=== PATIENT | female | born 1975 | race Caucasian/White ===

== ENCOUNTER 2016-10-17 08:31 | Day surgery (SDC) | payer OTHER ==
[2016-10-13 13:24] VITALS: BMI 49.6
[2016-10-17] MEDS ORDERED: LIDOCAINE HCL/PF 2% SDV 5ML VIAL ONE (09:24)
[2016-10-17] MEDS ORDERED: ONDANSETRON 4 MG/2 ML VIAL ONE (09:24)
[2016-10-17] MEDS ORDERED: KETOROLAC TROMETHAMINE 30 MG/1 ML VIAL ONE (09:24)
[2016-10-17] MEDS ORDERED: DEXAMETHASONE SOD PHOSPHATE 4 MG/1 ML VIAL ONE (09:24)
[2016-10-17] MEDS ORDERED: PROPOFOL 20 ML ONE ×2 (09:24→10:57)
[2016-10-17] MEDS ORDERED: MIDAZOLAM HCL 2 MG/2 ML SINGLE DOSE VIAL ONE (09:24)
[2016-10-17] MEDS ORDERED: ceFAZolin SODIUM 1 GM VIAL ONE (09:24)
[2016-10-17] MEDS ORDERED: BUPIVACAINE HCL/PF 2.5 MG/ML - 30 ML VIAL IJ ONE (09:36)
[2016-10-17] MEDS ORDERED: ROCURONIUM BROMIDE 50 MG/5 ML VIAL ONE (09:55)
[2016-10-17] MEDS ORDERED: ONDANSETRON 4 MG/2 ML VIAL IVPUSH PRN (10:52)
[2016-10-17] MEDS ORDERED: oxyCODONE HCL 5 MG TABLET PO PRN ×2 (10:52)
[2016-10-17] MEDS ORDERED: NEOSTIGMINE METHYLSULFATE 0.5 MG/ML - 10 ML MDV ONE (10:54)
[2016-10-17] MEDS ORDERED: GLYCOPYRROLATE 0.2 MG/1 ML VIAL ONE (10:55)
[2016-10-17] MEDS ORDERED: BUPIVACAINE HCL/PF 0.25% (2.5MG/ML) 10 ML VIAL IJ ONE (10:56)
[2016-10-17] MEDS ORDERED: LACTATED RINGERS SOLUTION 1,000 ML IV SCH (11:00)
[2016-10-17] MEDS ORDERED: oxyCODONE HCL 10 MG SUSTAINED ACTING TABLET ONE (13:03)
[2016-10-17] MEDS ORDERED: oxyCODONE HCL 5 MG TABLET ONE (13:06)
[2016-10-17 19:12] VITALS: BP 132/88; PULSE 81; TEMP 98
--- NOTE | 2016-10-21 14:32 | PATH ---
Surgical Pathology Report Patient Name: ALMA DELIA KHAN [facility]. Rec. #: [id number] /Age/Gender: 1975 (Age: 40) / F Account: [id number] Location: [facility] Taken: 10/17/2016 Received: 10/17/2016 Reported: 10/21/2016 Physicians: Kevin Campo M.D. Specimen(s) Received LEFT KNEE SHAVINGS Clinical History Left knee internal derangement Final Diagnosis KNEE, LEFT, ARTHROSCOPIC SHAVINGS: PORTION OF HYALINE CARTILAGE AND BENIGN ADIPOSE TISSUE. Electronically Signed Theodore Early M.D. Gross Description Received in formalin labeled "left knee shavings," is a 0.4 x 0.3 x 0.1 cm aggregate of pulido soft tissue fragments. The formalin is filtered and the specimen is entirely submitted in one cassette. /10/20/201610/20/2016
--- NOTE | 2016-11-03 00:46 | OP ---
DATE OF OPERATION: 10/17/2016 SURGEON: Andres Melendez MD POLE SANDER OPERATOR: JASMIN Ji PREOPERATIVE DIAGNOSIS: 1. Left knee medial and lateral meniscal tear. 2. Left knee cartilage injury. 3. Left knee synovitis. POSTOPERATIVE DIAGNOSIS: 1. Left knee medial and lateral meniscal tear. 2. Left knee cartilage injury. 3. Left knee synovitis. PROCEDURE: 1. Left knee arthroscopy and partial meniscectomy of medial and lateral meniscus. 2. Left knee arthroscopy, chondroplasty, and abrasioplasty. 3. Left knee arthroscopy and synovectomy major. CPT code 11996, 25640, and 43587. FINDINGS: 1. Medial meniscus anterior horn tear. 2. Lateral meniscus anterior horn tear. 3. Synovitis patellofemoral and medial and lateral notch area. 4. Central grade 3-4 cartilage injury anterior medial and femoral condyle with cartilage flap. 5. ACL and PCL intact. 6. Minimal cartilage change of the lateral joint. 7. Central grade 2-4 cartilage injury of the patella with grade 1-2 changes of the patellofemoral trochlea. PROCEDURE: Informed consent was obtained. The patient was taken to the operating room where the left lower extremity was prepped and draped in a sterile fashion. A tourniquet was placed on the left upper thigh but not inflated. Using standard arthroscopic technique, a lateral incision and portal were made which allowed for introduction of the camera into the suprapatellar bursa. This was then taken to the medial joint line where under direct visualization, a medial incision and portal were made. Excessive synovium noted in the medial, lateral, patellofemoral and notch area was removed by the up-biting shaver and Bovie cautery. This was found to bring inflammatory tissue into the joint surface, a source of joint pain and dysfunction. Probing of the medial and lateral meniscus found tears described in the findings. These were removed with an up-biting shaver and taken back to a stable rim. Grade 2-3 degenerative changes were treated with chondroplasty, removing all flaking surfaces with low setting Bovie used along the periphery. Grade 4 changes were treated with abrasion-plasty. All areas of the knee were once again re-examined. The knee was then drained. A single suture was placed on all portals. Sterile dressing was placed. The patient was transferred to the recovery room. ANDRES MELENDEZ M.D. [id number]
== END 2016-10-17 14:20 | disposition home or self-care (01) ==
LOC: FASU 08:31
PROVIDERS: ATTEND Orthopaedic Surgery
PROC: 0SBD4ZZ Excision of Left Knee Joint, Percutaneous Endoscopic Approach (ICD-10-PCS; 2016-10-17)
PROC: 0SBD4ZZ Excision of Left Knee Joint, Percutaneous Endoscopic Approach (ICD-10-PCS; 2016-10-17)
PROC: 0SBD4ZZ Excision of Left Knee Joint, Percutaneous Endoscopic Approach (ICD-10-PCS; principal; 2016-10-17 10:38)
DX: S83.242A Other tear of medial meniscus, current injury, left knee, initial encounter (principal); S83.282A Other tear of lateral meniscus, current injury, left knee, initial encounter; S83.8X2A Sprain of other specified parts of left knee, initial encounter; M65.862 Other synovitis and tenosynovitis, left lower leg; X58.XXXA Exposure to other specified factors, initial encounter; Y93.9 Activity, unspecified; Y92.9 Unspecified place or not applicable
CPT/HCPCS: 84703; 88304-TC; 94760